=== PATIENT | female | born 1995 | race African-American/Black ===

== ENCOUNTER 2016-10-25 13:49 | Emergency (ER) | payer OTHER, BC ==
[~2016-10-25] VITALS: Ht 165.1 cm; Wt 66.0 kg
[2016-10-25 14:02] VITALS: TEMP 36.8; Ht 165.1 cm; Wt 66.0 kg
[2016-10-25] MEDS ORDERED: DiphenhydrAMINE HCL 50 MG/ML VIAL IV STA (15:26)
[2016-10-25] MEDS ORDERED: FAMOTIDINE 20MG/102 ML D5W IV STA (15:26)
[2016-10-25] MEDS ORDERED: DEXAMETHASONE SOD INJ 4 MG/ML VIAL IV STA (15:26)
[2016-10-25 15:45] LABS: BASO % 0.1 %; BASO ABS # 0.01 K/uL (0-0.2); COMPLETE YES; HEMATOCRIT 38.1 % (37-47); IG% 0.3 %; LYMPH % 20.1 %; LYMPH ABS # 1.46 K/uL (1.2-3.4); MEAN CELL VOLUME 92.7 fL (80-100); MEAN CORPUSCULAR HEMOGLOBIN 31.6 pg (25-34); MEAN CORPUSCULAR HGB CONC 34.1 g/dl (32-36); MEAN PLATELET VOLUME 8.7 fL (7.4-10.4); MONO % 5.8 %; NEUT % 72.7 %; PLATELET COUNT 265 K/uL (130-400); RED BLOOD COUNT 4.11 M/uL (4.2-5.4); WHITE BLOOD COUNT 7.28 K/uL (4.8-10.8)
[2016-10-25] MEDS ORDERED: HYDR50CA2 PO (15:45)
--- NOTE | 2016-10-25 16:20 | EMERGENCY ROOM VISIT NOTE ---
ED Visit Note First contact with patient: 15:18 I have seen and examined this patient with Tianna Castaneda and generally agree with the treatment plan as discussed. Current/Historical Medications Scheduled PRN Hydroxyzine Pamoate (Vistaril), 50 MG PO Q8 PRN for Itching Allergies Coded Allergies: Latex (Verified Allergy, Mild, RASH, 10/25/16) Uncoded Allergies: SULFATES (Allergy, Severe, ANAPHYLAXIS, 10/25/16) Vital Signs Date Time Temp Pulse Resp B/P Pulse Ox O2 Delivery O2 Flow Rate FiO2 10/25/16 15:32 83 16 116/77 100 10/25/16 14:06 99 Room Air 10/25/16 14:02 36.8 99 22 136/76 99 Room Air Laboratory Results 10/25/16 15:30 Red Blood Count 4.11, Mean Corpuscular Volume 92.7, Mean Corpuscular Hemoglobin 31.6, Mean Corpuscular Hemoglobin Concent 34.1, Mean Platelet Volume 8.7, Neutrophils (%) (Auto) 72.7, Lymphocytes (%) (Auto) 20.1, Monocytes (%) (Auto) 5.8, Eosinophils (%) (Auto) 1.0, Basophils (%) (Auto) 0.1, Neutrophils # (Auto) 5.30, Lymphocytes # (Auto) 1.46, Monocytes # (Auto) 0.42, Eosinophils # (Auto) 0.07, Basophils # (Auto) 0.01 Test 10/25/16 15:30 White Blood Count 7.28 K/uL (4.8-10.8) Red Blood Count 4.11 M/uL (4.2-5.4) Hemoglobin 13.0 g/dL (12.0-16.0) Hematocrit 38.1 % (37-47) Mean Corpuscular Volume 92.7 fL (80-100) Mean Corpuscular Hemoglobin 31.6 pg (25-34) Mean Corpuscular Hemoglobin Concent 34.1 g/dl (32-36) Platelet Count 265 K/uL (130-400) Mean Platelet Volume 8.7 fL (7.4-10.4) Neutrophils (%) (Auto) 72.7 % Lymphocytes (%) (Auto) 20.1 % Monocytes (%) (Auto) 5.8 % Eosinophils (%) (Auto) 1.0 % Basophils (%) (Auto) 0.1 % Neutrophils # (Auto) 5.30 K/uL (1.4-6.5) Lymphocytes # (Auto) 1.46 K/uL (1.2-3.4) Monocytes # (Auto) 0.42 K/uL (0.11-0.59) Eosinophils # (Auto) 0.07 K/uL (0-0.5) Basophils # (Auto) 0.01 K/uL (0-0.2) RDW Standard Deviation 41.1 fL (36.4-46.3) RDW Coefficient of Variation 12.1 % (11.5-14.5) Immature Granulocyte % (Auto) 0.3 % Immature Granulocyte # (Auto) 0.02 K/uL (0.00-0.02) Medications Administered Medications (Trade) Dose Ordered Sig/Joe Route Start Time Stop Time Status Last Admin Dose Admin Famotidine (Pepcid 20mg/100 ml) 20 mg ONE STAT IV 10/25/16 15:26 10/25/16 15:28 DC 10/25/16 15:39 20 MG Dexamethasone Sodium Phosphate (Decadron Inj) 10 mg NOW STAT IV 10/25/16 15:26 10/25/16 15:28 DC 10/25/16 15:37 10 MG Diphenhydramine HCl (Benadryl Inj) 25 mg NOW STAT IV 10/25/16 15:26 10/25/16 15:28 DC 10/25/16 15:34 25 MG Departure Information Referrals No Doctor, Assigned (PCP) Patient Instructions [facility]
[2016-10-25 16:21] LABS: BUN/CREATININE RATIO 15.8 (10-20); CALCIUM 9.1 mg/dl (8.5-10.1); CREATININE 0.62 mg/dl (0.60-1.20); POTASSIUM 3.9 mmol/L (3.5-5.1)
[2016-10-25] MEDS ORDERED: METH4PAK PO (16:50)
--- NOTE | 2016-10-25 16:52 | EMERGENCY ROOM VISIT NOTE ---
History First contact with patient: 15:18 Chief Complaint: ALLERGIC REACTION Stated Complaint: ALLERGIC REACTION Nursing Triage Summary: Pt reports allergic reaction, "It may be Siracha". facial swelling, throat tightening, lips swollen, chest tightness. Started 2 days ago, but worsening. Took Benadryl 2 days ago History of Present Illness The patient is a 21 year old female who presents to the Emergency Room with complaints of allergic reaction. The patient states yesterday morning after she ate eggs and Siracha she started with facial swelling and lip swelling. She also feels like her throat and chest is tight. The patient states that she then got better and then this morning she had eggs again and started with the same symptoms. She currently is complaining of mild facial swelling and feeling like her throat and chest are tight. The patient denies any rashes. The patient states that she has eaten eggs in the past without any problems. The patient is visiting a friend here but resides in [place]. Review of Systems 10 system review was performed and was negative unless stated otherwise history of present illness. Past Medical/Surgical History G6PD, JRA, fibromyalgia Social History Smoking Status: Current Every Day Smoker Alcohol Use: occasionally Drug Use: none Marital Status: single Housing Status: lives with family Occupation Status: unemployed Current/Historical Medications Scheduled Methylprednisolone (Medrol Dosepak), 1 PKT PO UD Scheduled PRN Hydroxyzine Pamoate (Vistaril), 50 MG PO Q8 PRN for Itching Allergies Coded Allergies: Latex (Verified Allergy, Mild, RASH, 10/25/16) Uncoded Allergies: SULFATES (Allergy, Severe, ANAPHYLAXIS, 10/25/16) Physical Exam Vital Signs Date Time Temp Pulse Resp B/P Pulse Ox O2 Delivery O2 Flow Rate FiO2 10/25/16 15:32 83 16 116/77 100 10/25/16 14:06 99 Room Air 10/25/16 14:02 36.8 99 22 136/76 99 Room Air Physical Exam PHYSICAL EXAM: Vital Signs were reviewed: Temperature 36.8, blood pressure 136/ 76, pulse 99, respiratory rate 22 Reviewed Nurse's notes and agree. Oxygen saturation is 99 % on room air which is normal . GENERAL: 21-year-old female appears in no acute distress. She does not appear in any respiratory distress. MENTAL STATUS: Alert, oriented, coherent. EARS: Canals clear. TMs good light reflex, no erythema or fluid level noted. NOSE: Nasal mucosa with moderate erythema engorgement. PHARYNX no erythema, no edema noted. No exudate noted. Airway is adequate. NECK: Supple, non-tender. No lymphadenopathy noted. LUNGS: Clear to auscultation without wheezes rales or rhonchi. CARDIAC: Regular rate and rhythm without murmur. SKIN: No rashes noted. Medical Decision & Procedures Laboratory Results 10/25/16 15:30 Red Blood Count 4.11, Mean Corpuscular Volume 92.7, Mean Corpuscular Hemoglobin 31.6, Mean Corpuscular Hemoglobin Concent 34.1, Mean Platelet Volume 8.7, Neutrophils (%) (Auto) 72.7, Lymphocytes (%) (Auto) 20.1, Monocytes (%) (Auto) 5.8, Eosinophils (%) (Auto) 1.0, Basophils (%) (Auto) 0.1, Neutrophils # (Auto) 5.30, Lymphocytes # (Auto) 1.46, Monocytes # (Auto) 0.42, Eosinophils # (Auto) 0.07, Basophils # (Auto) 0.01 10/25/16 15:30 Test 10/25/16 15:30 White Blood Count 7.28 K/uL (4.8-10.8) Red Blood Count 4.11 M/uL (4.2-5.4) Hemoglobin 13.0 g/dL (12.0-16.0) Hematocrit 38.1 % (37-47) Mean Corpuscular Volume 92.7 fL (80-100) Mean Corpuscular Hemoglobin 31.6 pg (25-34) Mean Corpuscular Hemoglobin Concent 34.1 g/dl (32-36) Platelet Count 265 K/uL (130-400) Mean Platelet Volume 8.7 fL (7.4-10.4) Neutrophils (%) (Auto) 72.7 % Lymphocytes (%) (Auto) 20.1 % Monocytes (%) (Auto) 5.8 % Eosinophils (%) (Auto) 1.0 % Basophils (%) (Auto) 0.1 % Neutrophils # (Auto) 5.30 K/uL (1.4-6.5) Lymphocytes # (Auto) 1.46 K/uL (1.2-3.4) Monocytes # (Auto) 0.42 K/uL (0.11-0.59) Eosinophils # (Auto) 0.07 K/uL (0-0.5) Basophils # (Auto) 0.01 K/uL (0-0.2) RDW Standard Deviation 41.1 fL (36.4-46.3) RDW Coefficient of Variation 12.1 % (11.5-14.5) Immature Granulocyte % (Auto) 0.3 % Immature Granulocyte # (Auto) 0.02 K/uL (0.00-0.02) Anion Gap 5.0 mmol/L (3-11) Est Creatinine Clear Calc Drug Dose 127.0 ml/min Estimated GFR () 147.3 Estimated GFR (Non- 127.1 BUN/Creatinine Ratio 15.8 (10-20) Calcium Level 9.1 mg/dl (8.5-10.1) Medications Administered Medications (Trade) Dose Ordered Sig/Joe Route Start Time Stop Time Status Last Admin Dose Admin Famotidine (Pepcid 20mg/100 ml) 20 mg ONE STAT IV 10/25/16 15:26 10/25/16 15:28 DC 10/25/16 15:39 20 MG Dexamethasone Sodium Phosphate (Decadron Inj) 10 mg NOW STAT IV 10/25/16 15:26 10/25/16 15:28 DC 10/25/16 15:37 10 MG Diphenhydramine HCl (Benadryl Inj) 25 mg NOW STAT IV 10/25/16 15:26 10/25/16 15:28 DC 10/25/16 15:34 25 MG ED Course The patient was evaluated. IV access was obtained. The patient was given Benadryl 25 mg IV, Decadron 10 mg IV and Pepcid 20 mg IV. CBC and differential renal profile was ordered. Labs were reviewed and were unremarkable. The patient was independently evaluated by Dr. Dietrich who agrees with treatment plan. The patient was discharged home in stable condition. Medical Decision The patient did not have any physical findings on exam therefore my diagnosis is based on the patient's history. Differential diagnosis would include panic attack, allergic reaction, Impression Primary Impression: Allergic reaction Departure Information Dispostion Home / Self-Care Condition GOOD Prescriptions Methylprednisolone (MEDROL DOSEPAK) 4 Mg Cholo 1 PKT PO UD for 6 Days, #1 PKT Prov: Tianna Castaneda PA-C 10/25/16 Referrals No Doctor, Assigned (PCP) Forms HOME CARE DOCUMENTATION FORM, IMPORTANT VISIT INFORMATION Patient Instructions My [facility] Additional Instructions Avoid eggs if possible. Take Decadron as prescribed. Also if he experienced any facial or lip swelling take Benadryl 25-50 mg every 6 hours. If you experience any throat or chest tightness go to the emergency room immediately. Follow-up with your PCP when you return home.
[2016-10-25 17:00] VITALS: BP 108/67; PULSE 72; O2SAT 100
== END 2016-10-25 17:00 | disposition home or self-care (01) ==
LOC: C.EDB 13:50 → C.EDC 17:00
DX: T78.40XA Allergy, unspecified, initial encounter (principal); X58.XXXA Exposure to other specified factors, initial encounter; F17.200 Nicotine dependence, unspecified, uncomplicated; Z91.040 Latex allergy status; Z88.5 Allergy status to narcotic agent

== ENCOUNTER 2016-11-29 12:19 | Emergency (ER) | payer OTHER, BC ==
[~2016-11-29] VITALS: Ht 162.6 cm; Wt 68.5 kg
[~2016-11-29 12:19] MED LIST: HYDR50CA2 PO
[2016-11-29 12:24] VITALS: TEMP 36.9; Ht 162.6 cm; Wt 68.5 kg
[2016-11-29] MEDS ORDERED: ALBUTEROL HFA 8 GM INHALER INH STA (12:35)
[2016-11-29] MEDS ORDERED: SODIUM CHLORIDE 0.9% 1000ML 1,000 ML IV STA (12:35)
[2016-11-29] MEDS ORDERED: DiphenhydrAMINE HCL 50 MG/ML VIAL IV STA (12:35)
[2016-11-29] MEDS ORDERED: METHYLPREDNISOLONE 125 MG VIAL IV STA (12:35)
[2016-11-29] MEDS ORDERED: RANITIDINE HCL 50 MG/100 ML D5W IV STA (12:35)
[2016-11-29] MEDS ORDERED: ALBUT/IPRATROP 3MG/0.5MG NEB 3 ML VIAL INH STA (12:35)
[2016-11-29] MEDS ORDERED: PRED20TA2 PO ×2 (12:51→14:22)
[2016-11-29 13:05] VITALS: PULSE 85; O2SAT 100
[2016-11-29] MEDS ORDERED: KETOROLAC TROMETHAMINE 30 MG/ML VIAL IV STA (14:16)
[2016-11-29] MEDS ORDERED: HYDROCODONE/HOMATROPINE SYRUP 5MG/1.5MG 5ML UDP PO STA (14:16)
[2016-11-29] MEDS ORDERED: HYDR5SYP11 PO (14:22)
--- NOTE | 2016-11-29 14:27 | EMERGENCY ROOM VISIT NOTE ---
History Report prepared by Azalea: Fam Wright Under the Supervision of: Dr. Panfilo Dietrich M.D. First contact with patient: 12:29 Chief Complaint: ALLERGIC REACTION Stated Complaint: VOMITING, HARD TO BREATHE, PUFFY FACE, TIGHT CHEST History of Present Illness The patient is a 21 year old female who presents to the Emergency Room with complaints of a possible worsening allergic reaction beginning this morning. Her symptoms include chest tightness, facial swelling, lymphadenopathy, and shortness of breath. She states that she had a similar reaction occur last week for which she was seen at [facility]. The patient states that she was told by [facility] that she should present to the ED if similar symptoms return. She notes that she has a history of g6pdD. She has a history of asthma. The patient notes that she is scheduled for surgery on her vocal chord in the coming months. She states that she has been taking Prednisone and Benadryl for her previous reaction, but did not take any today. She denies any fevers. Source of History: patient Onset: this morning Quality: other (allergic reaction) Timing: worsening Associated Symptoms: + SOB, + chest pain, + lymphadenopathy, No fevers Note: The patient complains of facial swelling. Review of Systems See HPI for pertinent positives & negatives. A total of 10 systems reviewed and were otherwise negative. Past Medical & Surgical Medical Problems: (1) Asthma Family History No pertinent family history stated. Social History Smoking Status: Current Every Day Smoker Alcohol Use: occasionally Drug Use: none Marital Status: single Housing Status: lives with family Occupation Status: unemployed Current/Historical Medications Scheduled Prednisone (Prednisone Tab), 20 MG PO BID Prednisone (Prednisone Tab), 0 PO DAILY Scheduled PRN Hydrocodone W/ Homatropine (Hycodan 5/1.5MG 5 Ml), 5 ML PO HS PRN for Pain Allergies Coded Allergies: Latex (Verified Allergy, Mild, RASH, 10/25/16) Uncoded Allergies: SULFATES (Allergy, Severe, ANAPHYLAXIS, 10/25/16) Physical Exam Vital Signs Date Time Temp Pulse Resp B/P Pulse Ox O2 Delivery O2 Flow Rate FiO2 11/29/16 14:36 76 16 136/91 100 Room Air 11/29/16 14:12 100 20 137/89 97 Room Air 11/29/16 13:13 84 11/29/16 13:12 96 Room Air 11/29/16 13:11 85 20 140/100 100 Nebulizer 8.0 11/29/16 13:05 85 16 100 Room Air 11/29/16 12:24 36.9 61 20 141/89 99 Room Air Physical Exam GENERAL: Patient is a healthy-appearing well-nourished HEAD: Normocephalic atraumatic EYES: Ocular movements intact pupils equal and react to light OROPHARYNX mucous membranes are moist no exudates present no erythema or edema present NECK: Supple no nuchal rigidity CHEST: Good equal expansion LUNGS: Bilateral wheezing. CARDIAC: Normal S1 and S2 ABDOMEN: Soft nontender no guarding BACK: No CVA tenderness EXTREMITIES: No pain upon palpation normal muscle strength in all groups no clubbing cyanosis or edema NEURO: Patient is following commands is answering questions appropriately. Alert and oriented x3 Cranial Nerves 2-12 grossly intact Medical Decision & Procedures Medications Administered Medications (Trade) Dose Ordered Sig/Joe Route Start Time Stop Time Status Last Admin Dose Admin Albuterol (Ventolin Hfa Inhaler) 2 puffs NOW STAT INH 11/29/16 12:35 11/29/16 12:38 DC 11/29/16 12:35 2 PUFFS Albuterol/ Ipratropium 12 ml 12 ml ONE STAT INH 11/29/16 12:35 11/29/16 12:38 DC 11/29/16 12:35 12 ML Sodium Chloride (Nss 1000ml) 1,000 ml @ 999 mls/hr Q1H1M STAT IV 11/29/16 12:35 11/29/16 13:35 DC 11/29/16 13:02 999 MLS/HR Methylprednisolone Sodium Succinate (Solu-Medrol IV) 125 mg NOW STAT IV 11/29/16 12:35 11/29/16 12:38 DC 11/29/16 13:04 125 MG Diphenhydramine HCl (Benadryl Inj) 50 mg NOW STAT IV 11/29/16 12:35 11/29/16 12:38 DC 11/29/16 13:03 50 MG Ranitidine HCl (zANTac IV) 50 mg NOW STAT IV 11/29/16 12:35 11/29/16 12:38 DC 11/29/16 13:16 50 MG Ketorolac Tromethamine (Toradol Inj) 30 mg NOW STAT IV 5/8/17 14:16 11/29/16 14:17 DC 11/29/16 14:28 30 MG Hydrocodone Bit/ Homatropine Methylb (Hycodan Syrup) 5 ml NOW STAT PO 11/29/16 14:16 11/29/16 14:17 DC 11/29/16 14:27 5 ML ED Course 1231: Past medical records reviewed. The patient was evaluated in room B10. A complete history and physical examination was performed. 1235: Ordered Zantac 50 mg IV, Benadryl Inj 50 mg IV, Solu-Medrol 125 mg IV, Sodium Chloride 1000 ml @ 999 mls/hr, DuoNeb 12 mL INH, Ventolin Hfa Inhaler 2 puffs INH. 1416: Ordered Hycodan Syrup 5 mL PO, Toradol Inj 30 mg IV. 1420: Upon reexamination the patient is resting comfortably. I discussed results and treatment plan with the patient. She verbalizes agreement and understanding. The patient is ready for discharge. Medical Decision Differential diagnosis: Etiologies such as allergic reaction, anaphylaxis, urticaria, Joseph-Parag syndrome, toxic epidermal necrolysis, erythema multiforme, cellulitis, as well as others were entertained. This is a 21-year-old female who presents emergency department complaining of allergic reaction. The patient's face swelled up this morning. She is currently on prednisone however her last dose of prednisone was last evening. For this reason the patient was started on an IV given Solu-Medrol Zantac and Benadryl. She was also given an hour-long breathing treatment. Repeat examination revealed much improvement the patient's symptoms. I'm going to increase the patient's prednisone taper and also recommended that she follow up with a primary care physician. Patient was in agreement with the treatment plan. Impression Primary Impression: Allergic reaction Scribe Attestation The scribe's documentation has been prepared under my direction and personally reviewed by me in its entirety. I confirm that the note above accurately reflects all work, treatment, procedures, and medical decision making performed by me. Departure Information Dispostion Home / Self-Care Prescriptions Hydrocodone W/ Homatropine (HYCODAN 5/1.5MG 5 ML) 1 Syp Syp 5 ML PO HS Y for Pain, #120 ML Prov: Panfilo Dietrich MD 11/29/16 Prednisone (Prednisone Tab) 20 Mg Tab 0 PO DAILY, #7 TAB 2 TABS DAILY FOR 2 DAYS, THEN 1 TAB DAILY FOR 2 DAYS, THEN 1/2 TAB DAILY FOR 2 DAYS. Prov: Panfilo Dietrich MD 11/29/16 Referrals No Doctor, Assigned (PCP) Forms HOME CARE DOCUMENTATION FORM, IMPORTANT VISIT INFORMATION Patient Instructions ED Allergic Reaction General Other, My [facility] Additional Instructions Call [phone] to schedule an appointment with a PCP You received narcotic or benzodiazepene medication while in the emergency room today. Do not drive, operate heavy machinery, or drink alcohol under the influence of this medication. Take 600 mg Ibuprofen every 6 hours Take Hycodan for breakthrough pain You have been examined and treated today on an emergency basis only. This is not a substitute for, or an effort to provide, complete comprehensive medical care. It is impossible to recognize and treat all injuries or illnesses in a single emergency department visit. It is therefore important that you follow up closely with your PCP. Call as soon as possible for an appointment. Thank you for your time and consideration. I look forward to speaking with you again soon. Please don't hesitate to call us if you have any questions. Problem Qualifiers Primary Impression: Allergic reaction Encounter type: initial encounter Qualified Codes: T78.40XA - Allergy, unspecified, initial encounter
[2016-11-29 14:36] VITALS: BP 136/91; PULSE 76; O2SAT 100
== END 2016-11-29 14:39 | disposition home or self-care (01) ==
LOC: C.EDB 12:21
DX: T78.40XA Allergy, unspecified, initial encounter (principal); X58.XXXA Exposure to other specified factors, initial encounter; J45.909 Unspecified asthma, uncomplicated; F17.200 Nicotine dependence, unspecified, uncomplicated; Z91.040 Latex allergy status

== ENCOUNTER 2017-01-14 09:10 | Emergency (ER) | payer OTHER, BC ==
[~2017-01-14] VITALS: Ht 165.1 cm; Wt 70.7 kg
[~2017-01-14 09:10] MED LIST changes: -HYDR50CA2 PO; +PRED20TA2 PO
[2017-01-14 09:14] VITALS: TEMP 36.9; Ht 165.1 cm; Wt 70.7 kg
[2017-01-14] MEDS ORDERED: HYDR50CA2 PO (09:43)
[2017-01-14] MEDS ORDERED: ALBUT/IPRATROP 3MG/0.5MG NEB 3 ML VIAL INH STA (09:59)
[2017-01-14] MEDS ORDERED: FAMOTIDINE 20 MG TAB PO ONE (10:00)
[2017-01-14] MEDS ORDERED: EPP3/2 IM (11:14)
[2017-01-14] MEDS ORDERED: PRED20TA PO (11:14)
[2017-01-14] MEDS ORDERED: PRVHFAIN INH (11:47)
[2017-01-14 11:50] VITALS: BP 116/78; PULSE 102; O2SAT 100
--- NOTE | 2017-01-14 17:00 | EMERGENCY ROOM VISIT NOTE ---
History Report prepared by Azalea: Tim Sotomayor Under the Supervision of: Dr. Jarrett Ryan M.D. First contact with patient: 09:48 Chief Complaint: ALLERGIC REACTION Stated Complaint: ALLERGIC REACTION,SOB Nursing Triage Summary: having allergic reaction unsure of what the reaction is to. I had allergy issues a couple days ago. I have been here in the past for reactions. I didnt take any benedryl today History of Present Illness The patient is a 21 year old female who presents to the Emergency Room with complaints of an allergic reaction that began this morning, about 1 hour ago. She does not know everything that she is allergic to because she cannot see her Appliance Counselor until January. Two days ago, she noticed a reaction when she used a new cleaning product while she was cleaning out her refrigerator. Her hands began to burn, so she stopped using it, cleaned her hands off, and took a Benadryl. She woke up yesterday with some mild facial swelling. This morning she woke with the mild swelling again, but worsened after she ate breakfast. She ate a breakfast sandwich that consisted of eggs, marie, chicken, and gouda. This sandwich was from [employer], and has never caused this reaction before. Along with her facial swelling today, she presents with a sore throat, throat tightness, chest tightness, and trouble taking a full breath. She denies any recent fevers, cough, abdominal pain, back pain, or rash. She did not take any medications this morning. She notes that she did buy a new soap recently. She denies any chance that she is . She has a past medical history of Asthma , Fibromyalgia, and Anxiety. She currently takes Vistaril for her Anxiety. She notes that in her past visits to the ER for allergic reactions, she was given Prednisone. Source of History: patient Onset: 1 hour ago Position: lip Symptom Intensity: mild Quality: other (Swelling) Timing: constant Associated Symptoms: + sorethroat (with tightness), + chest pain (Tightness) , + SOB, No fevers, No cough, No abdominal pain, No back pain, No rash Review of Systems See HPI for pertinent positives & negatives. A total of 10 systems reviewed and were otherwise negative. Past Medical & Surgical Medical Problems: (1) Asthma Family History Patient reports no known family medical history. Social History Smoking Status: Former Smoker Alcohol Use: occasionally Drug Use: none Marital Status: single Housing Status: lives with family Occupation Status: employed Current/Historical Medications Scheduled Albuterol (Ventolin Hfa), 2 PUFFS INH Q4H Epinephrine (Epipen), 0.3 MG IM UD Prednisone (Prednisone Tab), 20 MG PO BID Prednisone (Prednisone), 3 TAB PO DAILY Scheduled PRN Hydroxyzine Pamoate (Vistaril), 50 MG PO QID PRN for Anxiety Allergies Coded Allergies: Latex (Verified Allergy, Mild, RASH, 10/25/16) Uncoded Allergies: SULFATES (Allergy, Severe, ANAPHYLAXIS, 10/25/16) Physical Exam Vital Signs Date Time Temp Pulse Resp B/P (MAP) Pulse Ox O2 Delivery O2 Flow Rate FiO2 01/14/17 11:50 102 20 116/78 100 01/14/17 09:21 99 Room Air 01/14/17 09:14 36.9 122 18 116/82 97 Room Air Physical Exam Constitutional: Vital signs reviewed. Eyes: Pupils are equal round reactive to light. Conjunctiva are noninjected. ENT: Mild erythema to the posterior oropharynx without exudate. No uvular edema or swelling to the tongue. Minimal facial swelling around the lips. Mucous membranes are moist. Neck supple without meningeal signs. Respiratory: Clear to auscultation bilaterally. Breath sounds are equal bilaterally. No wheezing or stridor. Cardiovascular: Regular rate and rhythm. No rubs or gallops. GI: Soft, nondistended and nontender. Bowel sounds are present. Musculoskeletal: No peripheral edema. No lower extremity tenderness. Integumentary: No cyanosis. No urticaria. Neurological: The patient is awake and alert. No focal deficits. Psychiatric: Normal affect. Medical Decision & Procedures Medications Administered Medications (Trade) Dose Ordered Sig/Joe Route Start Time Stop Time Status Last Admin Dose Admin Diphenhydramine HCl (Benadryl Cap) 50 mg NOW ONCE PO 01/14/17 10:00 01/14/17 10:01 DC 01/14/17 10:14 50 MG Prednisone (PredniSONE TAB) 60 mg NOW STAT PO 01/14/17 09:59 01/14/17 10:01 DC 01/14/17 10:14 60 MG Famotidine (Pepcid Tab) 20 mg NOW ONCE PO 01/14/17 10:00 01/14/17 10:01 DC 01/14/17 10:14 20 MG Albuterol/ Ipratropium (Duoneb) 3 ml NOW STAT INH 01/14/17 09:59 01/14/17 10:01 DC 01/14/17 10:13 3 ML ED Course 0948: The patient was evaluated in room B4. A complete history and physical exam was performed. 0959: Ordered DuoNeb 3 ml INH, Prednisone 60 mg PO 1000: Ordered Pepcid Tab 20 mg PO, Benadryl Cap 50 mg PO 1112: I reassessed the patient at this time. There is no significant angioedema. There is no wheezing on reexamination. She will follow up with immunology and allergy. 1120: Upon reevaluation, the patient appeared to have improvement of her symptoms. I discussed shannen's findings with her. She verbalized agreement of the treatment plan. She was discharged home. Medical Decision This is a 21-year-old female presents with sore throat and swelling to her face. Differential diagnosis includes allergic reaction, idiopathic angioedema , hereditary angioedema, strep pharyngitis, asthma exacerbation. I did perform a limited focused review of portions of the patient's old chart on the electronic medical record. The patient was here in the ER in October and November for an allergic reaction. Blood Pressure Screening: Patient was found to have normal blood pressure on screening and does not require follow-up. Medication Reconciliation: I attest that I have personally reviewed the patient' s current medication list. I did evaluate the patient as noted above. The patient is presenting with intermittent swelling to her lips for the past 2 days. She has had similar reactions over the past 2 months. She is not sure what she is allergic to it and does not have an allergy appointment for some time. At this time it is unclear what is causing her angioedema. I did guide and treat her with a DuoNeb. She was also given prednisone, Benadryl and Pepcid. I did do a rapid strep test which was negative. A throat culture is pending. I did reassess the patient. She does state she is feeling better. Her swelling has improved. She has no wheezing on exam. I did recommend she follow up with a local pipe out worker. She was given a prescription for prednisone. She will continue to use antihistamines. She was also given a prescription for EpiPen and an albuterol inhaler. She was discharged in good condition. Impression Primary Impression: Angioedema Additional Impression: Sore throat Scribe Attestation The scribe's documentation has been prepared under my direct and personally reviewed by me in its entirety. I confirm that the note above accurately reflects all work, treatment, procedures, and medical decision making performed by me. Departure Information Dispostion Home / Self-Care Prescriptions Albuterol (Ventolin Hfa) 60 Puffs/5400 Mcg Aers 2 PUFFS INH Q4H, #1 INHALER Prov: Jarrett Ryan M.D. 01/14/17 Epinephrine (EPIPEN) 0.3 Mg/0.3 Ml Inj 0.3 MG IM UD, #1 BOX Prov: Jarrett Ryan M.D. 01/14/17 Prednisone (Prednisone) 20 Mg Tab 3 TAB PO DAILY, #12 TAB FOR 4 DAYS Prov: Jarrett Ryan M.D. 01/14/17 Referrals Flip Christine M.D. Solic, John, M.D. Forms HOME CARE DOCUMENTATION FORM, IMPORTANT VISIT INFORMATION, Work Instructions Patient Instructions ED Angioedema, My [facility] Additional Instructions You have been examined and treated today on an emergency basis only. This is not a substitute for, or an effort to provide, complete comprehensive medical care. It is impossible to recognize and treat all injuries or illnesses in a single emergency department visit. It is therefore important that you follow up closely with an pipe out worker as well as your regular physician or [facility] services. Call as soon as possible for an appointment. Return for worsening symptoms or if you develop fever, feeling like you're going to pass out or cannot breathe, or any other concerning symptoms. Problem Qualifiers Primary Impression: Angioedema Encounter type: initial encounter Qualified Codes: T78.3XXA - Angioneurotic edema, initial encounter
== END 2017-01-14 11:52 | disposition home or self-care (01) ==
LOC: C.EDB 09:11
DX: T78.3XXA Angioneurotic edema, initial encounter (principal); X58.XXXA Exposure to other specified factors, initial encounter; J45.909 Unspecified asthma, uncomplicated; M79.7 Fibromyalgia; F41.9 Anxiety disorder, unspecified; Z79.899 Other long term (current) drug therapy; Z87.891 Personal history of nicotine dependence

== ENCOUNTER 2017-05-18 11:01 | Emergency (ER) | payer OTHER, BC ==
[~2017-05-18] VITALS: Ht 165.1 cm; Wt 77.1 kg
[~2017-05-18 11:01] MED LIST changes: +EPP3/2 IM; +HYDR50CA2 PO; +PRED20TA PO; +PRVHFAIN INH
[2017-05-18 11:18] VITALS: TEMP 36.7; Ht 165.1 cm; Wt 77.1 kg
[2017-05-18] MEDS ORDERED: EpINEphrine INJ 1MG/ML AMP 1 MG/ML AMP IM STA (11:59)
[2017-05-18] MEDS ORDERED: ONDANSETRON INJ 2 MG/ML 2 ML VIAL IV STA (11:59)
[2017-05-18] MEDS ORDERED: RANITIDINE HCL 50 MG/100 ML D5W IV STA (11:59)
[2017-05-18] MEDS ORDERED: METHYLPREDNISOLONE 125 MG VIAL IV STA (11:59)
[2017-05-18] MEDS ORDERED: DiphenhydrAMINE HCL 50 MG/ML VIAL IV STA (11:59)
[2017-05-18] MEDS ORDERED: LACTATED RINGER'S 1000ML 1,000 ML IV ONE (12:00)
[2017-05-18] MEDS ORDERED: PRED20TA2 PO (13:31)
[2017-05-18] MEDS ORDERED: EPP3/2 IM (13:31)
[2017-05-18 13:46] VITALS: BP 125/66; PULSE 88; O2SAT 98
--- NOTE | 2017-05-18 20:07 | EMERGENCY ROOM VISIT NOTE ---
ED Visit Note First contact with patient: 11:46 Chief Complaint: I think I'm having allergic reaction. History of Present Illness: Ms. Sena is a 22-year-old female who is brought into the ED via ambulance complaining of a possible allergic reaction. Historically patient reports she has had severe allergic reactions to cats. Patient reports approximately one hour ago she was at work sorting used close and believes she was exposed to cat hair. She reports her symptoms started when some hair touched her face and she started having sensations of lip and tongue swelling. She tried to get to a local drug store to buy Benadryl but was unsuccessful because by the time she got out to her car she was feeling short of breath. Bystander stopped to assist her and activated 911. Patient was transported to the hospital and during transport she received a breathing treatment. On arrival she reports she was no longer feeling short of breath. Currently patient is complaining of lip, tongue and throat swelling. She reports these sensations were slightly better since her breathing treatment but has not resolved like her shortness of breath. She has not identified any aggravating factors related to these symptoms. Associated with the symptoms she reports she has a strange heaviness sensation of her arms and is experiencing some mild chest tightness. She also reports she has been nauseated and had 2 episodes of vomiting prior to her breathing treatment. She denies headache, dizziness, lightheadedness, cough, wheezing, palpitations, orthopnea, dependent edema, previous clots, claudication, cramping, recent surgery/inactivity/extended travel, abdominal pain, back pain, urinary symptoms , skin eruptions, skin color changes, joint pain/swelling. Review of Systems: As noted above in history of present illness. All body systems were reviewed and found to be negative as noted above. Past Medical History: As previously noted, asthma, arthritis, fibromyalgia, food and seasonal allergies, G6PD deficiency. Current Medications: Patient denies. Allergies to Medications: Latex, sulfates. Social History: Patient is currently employed; she feels safe in her home environment; she denies tobacco use and admits to alcohol use. Physical Examination: Vital Signs: Date Time Temp Pulse Resp B/P (MAP) Pulse Ox O2 Delivery O2 Flow Rate FiO2 05/18/17 13:46 88 20 125/66 98 05/18/17 13:01 94 22 121/59 96 Room Air 05/18/17 12:44 88 05/18/17 11:18 36.7 78 18 115/84 99 Room Air 05/18/17 11:10 100 Room Air GENERAL: 22-year-old female in mild distress due to symptoms, nontoxic-appearing , afebrile and hemodynamically stable. NEUROLOGICAL: Awake, alert and oriented to person, place and time. Answering questions appropriately and following commands. Normal gait. Good hand eye coordination. No focal motor sensory deficits. SKIN: Warm, dry and pink. No soft tissue eruptions or trauma noted. Negative dermatographia testing. HEENT: Atraumatic and normocephalic. PERRLA. Sclera white and conjunctiva pink. No drainage from naris. No lip swelling. Oral cavity moist and pink. Uvula is midline and no swelling or erythema was noted. No tongue swelling. Pharynx is nonerythematous or edematous. Airway is patent. Speech normal and clear. No lymphadenopathy. Trachea midline. No jugular venous distention. No auditory or auscultatory stridor. BACK: No tenderness over the bony spine. No CVA tenderness. THORAX: Lungs sounds are clear to auscultation and equal bilaterally with symmetrical chest wall. No wheezing, rales or rhonchi. No crepitus, tenderness , subcutaneous air or deformities noted. HEART: Regular rate and rhythm. No gallops, rubs or murmurs are appreciated. ABDOMEN: Flat, soft and nontender. Positive bowel sounds in all quadrants. No guarding, rigidity or organomegaly. EXTREMITIES: Moves all extremities well on command and with purpose. All distal neurovascular statuses are intact and equal bilaterally. No calf tenderness or cords. ED Course: Patient is assessed as noted above. Patient's medication list was reviewed. Patient was hydrated with 1 L of lactated Ringer's and given 50 mg of Benadryl IV, 125 mg of Solu-Medrol IV, 50 mg of Zantac IV and 4 mg of Zofran IV. Additionally she received 0.3 mg of epinephrine IM. Patient was reevaluated multiple times during her stay in the emergency department. Patient's case was reviewed with Dr. Lackey; we agreed on diagnostic approach, treatment, disposition and plan. Patient was educated about today's findings and instructed on her treatment plan ; she verbalized understanding and agreement with this plan. Clinical Impression: Allergic reaction. Disposition: Patient discharged to home in stable condition accompanied by female friends; prior to departure she was reassessed and subjectively reported she was feeling much better. She did note she had a mild discomfort with swallowing but did not feel like the swelling sensation previously. LATE NOTE: Just prior to discharge patient reports she was out of her albuterol inhaler for her asthma and requested a prescription. A prescription was given. Plan: Patient was prescribed prednisone 60 mg once a day for 4 days. Patient was encouraged use [id number] Benadryl 25-50 mg every 6 hours and [id number] ranitidine 125 mg every 12 hours until resolution of symptoms. Patient was prescribed an EpiPen because she used her last on a previous episode. Patient is encouraged to follow-up with her PCP for recheck in 2-3 days. Patient was encouraged return ED for shortness of breath, sensation of tongue, throat or lip swelling or any new/concerning symptoms.
== END 2017-05-18 13:47 | disposition home or self-care (01) ==
LOC: EDBD 11:01 → C.EDB 11:02
DX: T78.40XA Allergy, unspecified, initial encounter (principal); X58.XXXA Exposure to other specified factors, initial encounter; Z91.040 Latex allergy status; Z88.8 Allergy status to other drugs, medicaments and biological substances

== ENCOUNTER 2017-06-03 14:09 | Emergency (ER) | payer OTHER, BC ==
[~2017-06-03] VITALS: Ht 165.1 cm; Wt 78.2 kg
[~2017-06-03 14:09] MED LIST changes: -HYDR50CA2 PO; -PRED20TA PO; -PRVHFAIN INH
[2017-06-03 14:13] VITALS: TEMP 36.9; Ht 165.1 cm; Wt 78.2 kg
[2017-06-03] MEDS ORDERED: RANITIDINE HCL 50 MG/100 ML D5W IV STA (14:23)
[2017-06-03] MEDS ORDERED: METHYLPREDNISOLONE 125 MG VIAL IV STA (14:23)
[2017-06-03] MEDS ORDERED: DiphenhydrAMINE HCL 50 MG/ML VIAL IV STA (14:23)
[2017-06-03 16:30] VITALS: BP 115/76; PULSE 88; O2SAT 98
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
== END 2017-06-03 16:30 | disposition home or self-care (01) ==
LOC: C.EDB 14:12
DX: T78.40XA Allergy, unspecified, initial encounter (principal); X58.XXXA Exposure to other specified factors, initial encounter; J45.909 Unspecified asthma, uncomplicated; Z87.891 Personal history of nicotine dependence

== ENCOUNTER → 2017-08-12 | Outpatient (CLI) | payer BC, OTHER ==
[~2017-08-12] MED LIST changes: -PRED20TA2 PO
--- NOTE | 2017-08-12 13:24 | DIAGNOSTIC IMAGING REPORT ---
RIGHT ANKLE 3 VIEWS CLINICAL HISTORY: Right ankle pain. Injury. FINDINGS: 3 views of the right ankle are obtained. No prior studies are available for comparison at the time of dictation. The skeletal structures are well mineralized. There is a tiny ossific density inferior to the medial malleolus. This may represent an age indeterminant avulsion injury or an enthesophyte. No additional findings are concerning for acute fracture. The ankle mortise is intact. There is a joint effusion, and soft tissue swelling is present around the ankle. IMPRESSION: 1. Soft tissue swelling and joint effusion. No definite acute fracture is identified. 2. A small ossific density is seen inferior to the medial malleolus. This may represent an age indeterminant avulsion injury versus an enthesophyte. Clinical correlation will be required. Electronically signed by: Yamil Mcnamara M.D. 08/12/2017 1:23 PM Dictated Date/Time: 08/12/2017 1:20 PM
== END | disposition home or self-care (01) ==
LOC: C.RDSM 13:00
PROVIDERS: ATTEND Family Medicine
DX: M25.571 Pain in right ankle and joints of right foot (principal)

== ENCOUNTER 2017-09-20 09:27 | Emergency (ER) | payer OTHER, BC ==
[~2017-09-20] VITALS: Ht 165.1 cm; Wt 77.7 kg
[2017-09-20 09:33] VITALS: TEMP 38.3; Ht 165.1 cm; Wt 77.7 kg
[2017-09-20 09:48] VITALS: O2SAT 96
[2017-09-20] MEDS ORDERED: SODIUM CHLORIDE 0.9% 1000ML 1,000 ML IV STA (10:13)
[2017-09-20] MEDS ORDERED: ACETAMINOPHEN 500 MG TAB PO STA (10:13)
--- NOTE | 2017-09-20 10:41 | EMERGENCY ROOM VISIT NOTE ---
History Report prepared by Edisibnancy: Kiana Bowser Under the Supervision of: Dr. Nicola Lackey D.O. First contact with patient: 10:04 Chief Complaint: ALLERGIC REACTION Stated Complaint: ALLERGIC REACTION, ANEMIC REACTION Nursing Triage Summary: Pt states hx of G6PD. Pt states, "I am having an allergic reaction and an anemic reaction. I'm not sure if the fever is from the reaction. I am having vaginal bleeding and it's not my period. I feel like I can't breathe. My whole body hurts and my chest hurts." Sx started yesterday. History of Present Illness The patient is a 22 year old female who presents to the Emergency Room with complaints of an episode of a allergic reaction beginning last night. The patient took a Benadryl last night which helped her symptoms. The patient has a history of of G6PD. She reports fever, chills, abdominal pain, cough, runny nose , chest congestion but denies any swelling in her legs. The patient states "I am having an allergic reaction and an anemic reaction". She reports she is having vaginal bleeding but it is not her menstrual period. The patient's last normal menstrual period was on 09/05. The patient is up to date on her immunizations. She denies any recent sick contact. Source of History: patient Onset: last night Position: other (generalized) Quality: other (allergic reaction) Timing: other Associated Symptoms: + fevers, + chills, + cough, + abdominal pain Review of Systems See HPI for pertinent positives & negatives. A total of 10 systems reviewed and were otherwise negative. Past Medical & Surgical Medical Problems: (1) Asthma (2) G6PD deficiency Family History Patient reports no known family medical history. Social History Smoking Status: Never Smoker Alcohol Use: occasionally Drug Use: none Marital Status: single Housing Status: lives with family Occupation Status: employed Current/Historical Medications Scheduled Albuterol Hfa (Ventolin Hfa), 1 PUFF INH Q4 Cefdinir (Omnicef), 300 MG PO Q12H Scheduled PRN Epinephrine (Epipen 2-Cholo), 0.3 MG IM DIRECTED PRN for ALLERGIC REACTION Allergies Coded Allergies: Latex (Verified Allergy, Mild, RASH, 06/03/17) Uncoded Allergies: SULFATES (Allergy, Severe, ANAPHYLAXIS, 10/25/16) Physical Exam Vital Signs Date Time Temp Pulse Resp B/P (MAP) Pulse Ox O2 Delivery O2 Flow Rate FiO2 09/20/17 12:23 109 21 119/59 98 Room Air 09/20/17 11:26 104 19 114/73 98 Room Air 09/20/17 10:49 111 20 126/78 99 Room Air 09/20/17 09:51 119 09/20/17 09:48 96 Room Air 09/20/17 09:35 100 Room Air 09/20/17 09:33 38.3 139 20 134/99 99 Room Air Physical Exam GENERAL: Patient is awake, alert, and in no acute distress. Patient is resting comfortably but mildly anxious appearing EYES: The conjunctivae are clear. The pupils are round and reactive. EARS, NOSE, MOUTH AND THROAT: The nose is without any evidence of any deformity. Mucous membranes are moist tongue is midline Clear rhinorrhea bilaterally. NECK: The neck is nontender and supple. RESPIRATORY: Normal respiratory effort is noted there is no evidence of wheezing rhonchi or rales CARDIOVASCULAR: Tachycardic rate but regular rhythm noted there no murmurs rubs or gallops normal S1 normal S2 GASTROINTESTINAL: The abdomen is soft. Bowel sounds are present in all quadrants. Abdomen is nontender MUSCULOSKELETAL/EXTREMITIES: There is no evidence of gross deformity full range of motion is noted in the hips and shoulders SKIN: There is no obvious evidence of any rash. There are no petechiae, pallor or cyanosis noted. NEUROLOGIC: Patient is awake alert and oriented x3 strength is symmetric patellar reflexes are 2+ bilaterally Medical Decision & Procedures ER Provider Diagnostic Interpretation: Radiology results as stated below per my review and radiologist interpretation: CHEST 2 VIEWS ROUTINE FINDINGS: Cardiomediastinal and hilar silhouettes are within normal limits. Linear subsegmental atelectasis of the lingula without pneumothorax, pleural effusion, focal airspace consolidation or overt pulmonary edema. Bones of the chest appear grossly intact. IMPRESSION: Linear subsegmental atelectasis of the lingula without acute process. The above report was generated using voice recognition software. It may contain grammatical, syntax or spelling errors. Electronically signed by: Gorge Evans M.D. Laboratory Results 09/20/17 10:35 Red Blood Count 4.16, Mean Corpuscular Volume 88.7, Mean Corpuscular Hemoglobin 30.5, Mean Corpuscular Hemoglobin Concent 34.4, Mean Platelet Volume 8.6, Neutrophils (%) (Auto) 88.5, Lymphocytes (%) (Auto) 6.8, Monocytes (%) (Auto) 3.8, Eosinophils (%) (Auto) 0.1, Basophils (%) (Auto) 0.1, Neutrophils # (Auto) 7.30, Lymphocytes # (Auto) 0.56, Monocytes # (Auto) 0.31, Eosinophils # (Auto) 0.01, Basophils # (Auto) 0.01 09/20/17 10:35 Test 09/20/17 10:25 09/20/17 10:35 Urine Color YELLOW Urine Appearance CLEAR (CLEAR) Urine pH 5.5 (4.5-7.5) Urine Specific [place] 1.021 (1.000-1.030) Urine Protein NEG (NEG) Urine Glucose (UA) NEG (NEG) Urine Ketones 2+ (NEG) Urine Occult Blood TRACE (NEG) Urine Nitrite NEG (NEG) Urine Bilirubin NEG (NEG) Urine Urobilinogen NEG (NEG) Urine Leukocyte Esterase NEG (NEG) Urine WBC (Auto) 1-5 /hpf (0-5) Urine RBC (Auto) 0-4 /hpf (0-4) Urine Hyaline Casts (Auto) 1-5 /lpf (0-5) Urine Epithelial Cells (Auto) 5-10 /lpf (0-5) Urine Bacteria (Auto) NEG (NEG) Influenza Type A Antigen Neg for Influ A (NEG) Influenza Type B Antigen Neg for Influ B (NEG) White Blood Count 8.25 K/uL (4.8-10.8) Red Blood Count 4.16 M/uL (4.2-5.4) Hemoglobin 12.7 g/dL (12.0-16.0) Hematocrit 36.9 % (37-47) Mean Corpuscular Volume 88.7 fL (80-100) Mean Corpuscular Hemoglobin 30.5 pg (25-34) Mean Corpuscular Hemoglobin Concent 34.4 g/dl (32-36) Platelet Count 248 K/uL (130-400) Mean Platelet Volume 8.6 fL (7.4-10.4) Neutrophils (%) (Auto) 88.5 % Lymphocytes (%) (Auto) 6.8 % Monocytes (%) (Auto) 3.8 % Eosinophils (%) (Auto) 0.1 % Basophils (%) (Auto) 0.1 % Neutrophils # (Auto) 7.30 K/uL (1.4-6.5) Lymphocytes # (Auto) 0.56 K/uL (1.2-3.4) Monocytes # (Auto) 0.31 K/uL (0.11-0.59) Eosinophils # (Auto) 0.01 K/uL (0-0.5) Basophils # (Auto) 0.01 K/uL (0-0.2) RDW Standard Deviation 39.2 fL (36.4-46.3) RDW Coefficient of Variation 12.2 % (11.5-14.5) Immature Granulocyte % (Auto) 0.7 % Immature Granulocyte # (Auto) 0.06 K/uL (0.00-0.02) Erythrocyte Sedimentation Rate 25 mm/hr (0-21) Prothrombin Time 11.2 SECONDS (9.0-12.0) Prothromb Time International Ratio 1.1 (0.9-1.1) Activated Partial Thromboplast Time 28.0 SECONDS (21.0-31.0) Partial Thromboplastin Ratio 1.1 Anion Gap 7.0 mmol/L (3-11) Est Creatinine Clear Calc Drug Dose 124.2 ml/min Estimated GFR () 135.9 Estimated GFR (Non- 117.2 BUN/Creatinine Ratio 7.8 (10-20) Calcium Level 9.0 mg/dl (8.5-10.1) Total Bilirubin 1.0 mg/dl (0.2-1) Direct Bilirubin 0.2 mg/dl (0-0.2) Aspartate Amino Transf (AST/SGOT) 13 U/L (15-37) Alanine Aminotransferase (ALT/SGPT) 16 U/L (12-78) Alkaline Phosphatase 77 U/L (45-117) Troponin I < 0.015 ng/ml (0-0.045) C-Reactive Protein 1.35 mg/dl (0-0.29) Total Protein 8.3 gm/dl (6.4-8.2) Albumin 4.1 gm/dl (3.4-5.0) Lipase 137 U/L (73-393) Human Chorionic Gonadotropin, Qual NEG (NEG) Laboratory results per my review. Medications Administered Medications (Trade) Dose Ordered Sig/Joe Route Start Time Stop Time Status Last Admin Dose Admin Acetaminophen (Tylenol Tab) 1,000 mg NOW STAT PO 09/20/17 10:13 09/20/17 10:15 DC 09/20/17 10:48 1,000 MG Sodium Chloride 1,000 ml @ 999 mls/hr Q1H1M STAT IV 09/20/17 10:13 09/20/17 11:13 DC 09/20/17 10:49 999 MLS/HR ECG Per My Interpretation Indication: SOB/dyspnea Rate (beats per minute): 107 Rhythm: sinus tachycardia Findings: other (ectopic beats noted, no acute ST segment) Comparison ECG Date: Change: ectopic beats are new ED Course 1008: The patient was evaluated in room A11B. A complete history and physical examination were performed. 1013: Ordered NSS 1,000 ml @ 999 mls/hr IV, Acetaminophen 1000 mg PO. 1144: I updated the patient on her test results. 1208: Upon reevaluation, the patient is resting comfortably. I discussed the results and treatment plan with her. She verbalized agreement of the treatment plan. The patient was discharged home. Medical Decision Differential diagnosis: Etiologies such as viral syndrome, otitis, pharyngitis, pneumonia, influenza, meningitis, urinary tract infection, sepsis, bacteremia, as well as others were entertained. Nursing notes reviewed. Patient's previous electronic medical records were also reviewed. The patient is a 22-year-old female who presented to the emergency department for an evaluation of what she described as an allergic reaction. The patient started having facial swelling. This occurred last evening. She showed me pictures of what her face looked like last evening. She did take Benadryl. This appears to have improved her symptoms because her facial swelling today appears improved. The patient also has a history of G6PD deficiency. She was concerned that this could be causing some of her symptoms today because she also describes vaginal bleeding. The patient had a fever. Her overall history and physical exam appear to be more consistent with a febrile illness. She had a cough. I discussed the patient's laboratory and radiographic studies with her. She was given Tylenol and IV fluids in the emergency department. I discussed her case with the emergency department pharmacist. I wish to start the patient on antibiotics and bronchodilators for presumed bronchitis given her underlying G6PD I asked his opinion on what medications she can safely be started on. The patient was given discharge instructions and encouraged to call [facility] to schedule a follow-up appointment. Otherwise she was encouraged to continue using Tylenol for fever and body aches and return to the emergency department immediately if symptoms change worsen or the need arises. Medication Reconcilliation Current Medication List: was personally reviewed by me Blood Pressure Screening Patient's blood pressure: Normal blood pressure Impression Primary Impression: Bronchitis Additional Impression: Fever Scribe Attestation The scribe's documentation has been prepared under my direction and personally reviewed by me in its entirety. I confirm that the note above accurately reflects all work, treatment, procedures, and medical decision making performed by me. Departure Information Dispostion Home / Self-Care Prescriptions Albuterol Hfa (VENTOLIN HFA) 200 Puffs/62132 Mcg Aers 1 PUFF INH Q4, #1 INHALER Prov: Nicola Lackey, DO 09/20/17 Cefdinir (OMNICEF) 300 Mg Cap 300 MG PO Q12H, #14 CAP Prov: Nicola Lackey, DO 09/20/17 Referrals No Doctor, Assigned (PCP) Forms HOME CARE DOCUMENTATION FORM, IMPORTANT VISIT INFORMATION Patient Instructions Bronchitis Acute, ED Fever Control, My [facility] Additional Instructions Call [facility] to schedule a follow-up appointment. Rest and avoid any strenuous activity. Drink plenty of clear liquids. Continue using Tylenol for fever. Return to the emergency department immediately if symptoms change worsening of the need arises. Problem Qualifiers Additional Impression: Fever Fever type: unspecified Qualified Codes: R50.9 - Fever, unspecified
[2017-09-20 10:59] LABS: BASO % 0.1 %; BASO ABS # 0.01 K/uL (0-0.2); EOS % 0.1 %; EOS ABS # 0.01 K/uL (0-0.5); HEMATOCRIT 36.9 % (37-47); HEMOGLOBIN 12.7 g/dL (12.0-16.0); IG# 0.06 K/uL (0.00-0.02); LYMPH % 6.8 %; LYMPH ABS # 0.56 K/uL (1.2-3.4); MEAN CELL VOLUME 88.7 fL (80-100); MEAN CORPUSCULAR HEMOGLOBIN 30.5 pg (25-34); MEAN CORPUSCULAR HGB CONC 34.4 g/dl (32-36); MEAN PLATELET VOLUME 8.6 fL (7.4-10.4); MONO % 3.8 %; MONO ABS # 0.31 K/uL (0.11-0.59); NEUT % 88.5 %; PLATELET COUNT 248 K/uL (130-400); RED CELL DISTRIBUTION WIDTH CV 12.2 % (11.5-14.5); RED CELL DISTRIBUTION WIDTH SD 39.2 fL (36.4-46.3); WHITE BLOOD COUNT 8.25 K/uL (4.8-10.8)
[2017-09-20 11:04] LABS: INFLUENZA B ANTIGEN Neg for Influ B (NEG)
[2017-09-20 11:06] LABS: INR 1.1 (0.9-1.1)
[2017-09-20 11:17] LABS: ALBUMIN 4.1 gm/dl (3.4-5.0); ALT/SGPT 16 U/L (12-78); BLOOD UREA NITROGEN 6 mg/dl (7-18); CARBON DIOXIDE 25 mmol/L (21-32); CREATININE 0.72 mg/dl (0.60-1.20); GLUCOSE 99 mg/dl (70-99); LIPASE 137 U/L (73-393); POTASSIUM 3.2 mmol/L (3.5-5.1); SODIUM 136 mmol/L (136-145)
--- NOTE | 2017-09-20 11:24 | DIAGNOSTIC IMAGING REPORT ---
CHEST 2 VIEWS ROUTINE HISTORY: 22 years-old Female ABDOMINAL PAIN/GI acute generalized abdominal pain COMPARISON: None available TECHNIQUE: PA and lateral views of the chest FINDINGS: Cardiomediastinal and hilar silhouettes are within normal limits. Linear subsegmental atelectasis of the lingula without pneumothorax, pleural effusion, focal airspace consolidation or overt pulmonary edema. Bones of the chest appear grossly intact. IMPRESSION: Linear subsegmental atelectasis of the lingula without acute process. The above report was generated using voice recognition software. It may contain grammatical, syntax or spelling errors. Electronically signed by: Gorge Evans M.D. 09/20/2017 11:23 AM Dictated Date/Time: 09/20/2017 11:22 AM
[2017-09-20 11:26] LABS: ALKALINE PHOSPHATASE 77 U/L (45-117); AST/SGOT 13 U/L (15-37); TOTAL PROTEIN 8.3 gm/dl (6.4-8.2)
[2017-09-20] MEDS ORDERED: VNTHFA/IN INH (12:00)
[2017-09-20] MEDS ORDERED: CEFD300C2 PO (12:00)
[2017-09-20 12:23] VITALS: BP 119/59; PULSE 109; O2SAT 98
== END 2017-09-20 12:30 | disposition home or self-care (01) ==
LOC: C.EDB 09:28 → C.EDA 12:30
DX: J40 Bronchitis, not specified as acute or chronic (principal); R50.9 Fever, unspecified; J45.909 Unspecified asthma, uncomplicated; D55.0 Anemia due to glucose-6-phosphate dehydrogenase [G6PD] deficiency; Z91.048 Other nonmedicinal substance allergy status; Z88.2 Allergy status to sulfonamides

== ENCOUNTER 2017-09-22 12:45 | Emergency (ER) | payer OTHER, BC ==
[~2017-09-22] VITALS: Ht 165.1 cm; Wt 76.0 kg
[~2017-09-22 12:45] MED LIST changes: +CEFD300C2 PO; +VNTHFA/IN INH
[2017-09-22 12:52] VITALS: TEMP 36.9; Ht 165.1 cm; Wt 76.0 kg
[2017-09-22] MEDS ORDERED: RANITIDINE HCL 50 MG/100 ML D5W IV STA (13:23)
[2017-09-22] MEDS ORDERED: METHYLPREDNISOLONE 125 MG VIAL IV STA (13:23)
[2017-09-22] MEDS ORDERED: DiphenhydrAMINE HCL 50 MG/ML VIAL IV STA (13:23)
[2017-09-22 13:41] VITALS: O2SAT 98
[2017-09-22] MEDS ORDERED: EPP3/2 IM (14:36)
[2017-09-22] MEDS ORDERED: METH4PAK PO (14:36)
--- NOTE | 2017-09-22 14:38 | EMERGENCY ROOM VISIT NOTE ---
ED Visit Note First contact with patient: 12:59 CHIEF COMPLAINT: Allergic reaction HISTORY OF PRESENT ILLNESS: This 22-year-old female patient presents to the emergency department 3 days after they developed sudden onset of swelling of her lips, tongue, and throat and itching of the arms. The patient states she used a lotion which she was allergic to. She does have a history of frequent allergic reactions in the past. She does report a history of G6PD. The patient does have swelling of the face and lips and a sensation of swelling in the throat. The patient has not had shortness of breath. Has had previous reactions and like this before. The patient has tried 25 mg Benadryl twice daily without improvement in her symptoms. She was seen here in the emergency department 2 days ago and diagnosed with bronchitis and prescribed an inhaler and antibiotics. She states she has not picked up these medications, she is waiting for her mother. REVIEW OF SYSTEMS: A 10 system review of systems was performed with positives and pertinent negatives listed in the history of present illness. All other systems were reviewed and are negative. ALLERGIES: Latex, sulfates MEDICATIONS: Cefdinir, albuterol PMH: G6PD, asthma, JRA SOCIAL HISTORY: The patient lives locally. She denies tobacco use. She admits to occasional alcohol use. The patient does admit to regular marijuana use. PHYSICAL EXAM:VITALS: Vitals are noted on the nurse's note and reviewed by myself. Vital signs stable. GENERAL: This is a 22-year-old black female, in no acute distress, nondiaphoretic, well-developed well-nourished. THROAT: No pharyngeal edema or injection, no exudates or tonsillar hypertrophy. Airway patent. LUNGS: Clear to auscultation and breath sounds equal, no wheezes, rales, or rhonchi. EYES: PERRLA, EOMI, no discharge or injection. NEUROLOGICAL: Alert and oriented to person, place, and time. Normal sensation to light and sharp touch. HEART: Regular rate without murmurs, ectopy, gallops, or rubs. SKIN: There is a mild, erythematous, maculopapular rash on the upper extremities. The lips are mildly swollen. There is no periorbital swelling. EMERGENCY DEPARTMENT COURSE: I examined the patient. Previous medical records reviewed. I offered to perform repeat labs, but the patient declines. I had a discussion with the patient regarding improvement in her symptoms, and recommended discharge on PO steroids. The patient initially seemed agreeable to this, then became irritable, and states "you don't understand, my tongue is swollen and I can't eat, and I just want to be able to enjoy food." I discussed with her that steroids will help with the swelling and she can take regular Zantac and Benadryl orally in addition to taking the steroids, as she is not currently taking Zantac, and is taking Benadryl only 25mg BID. She states she would like to receive IV medications which she normally gets when she comes to the ED for allergic reactions. IV access was obtained. The patient was given 50mg diphenhydramine, 50mg Zantac, and 125mg methylprednisolone IV for her symptoms. Halsey much improved. Discharge instructions reviewed, and the patient was discharged home in good condition with a prescription for Medrol Dosepak and EpiPen, per the patient's request. Patient was seen and evaluated by Dr. Cifuentes, who is in agreement with the assessment and plan. I attest that I have personally reviewed the patient's current medication list. Patient was found to have normal blood pressure on screening and does not require follow-up. DIFFERENTIAL DIAGNOSIS: Allergic reaction, lymphedema, upper respiratory infection, acute sinusitis, acute pharyngitis, Ludewig's angina, anaphylaxis, odontalgia, periapical abscess, malignancy, and others DIAGNOSIS: Allergic reaction Problem List Medical Problems: (1) Asthma Status: Chronic (2) G6PD deficiency Status: Chronic Current/Historical Medications Scheduled Albuterol Hfa (Ventolin Hfa), 1 PUFF INH Q4 Cefdinir (Omnicef), 300 MG PO Q12H Epinephrine (Epipen), 0.3 MG IM UD Methylprednisolone (Medrol Dosepak), 0 PO DAILY Scheduled PRN Epinephrine (Epipen 2-Cholo), 0.3 MG IM DIRECTED PRN for ALLERGIC REACTION Allergies Coded Allergies: Latex (Verified Allergy, Mild, RASH, 06/03/17) Uncoded Allergies: SULFATES (Allergy, Severe, ANAPHYLAXIS, 10/25/16) Vital Signs Date Time Temp Pulse Resp B/P (MAP) Pulse Ox O2 Delivery O2 Flow Rate FiO2 09/22/17 14:49 90 16 108/68 100 09/22/17 13:41 98 Room Air 09/22/17 12:52 36.9 107 16 139/89 100 Room Air Medications Administered Medications (Trade) Dose Ordered Sig/Joe Route Start Time Stop Time Status Last Admin Dose Admin Diphenhydramine HCl (Benadryl Inj) 50 mg NOW STAT IV 09/22/17 13:23 09/22/17 13:27 DC 09/22/17 13:40 50 MG Ranitidine HCl (zANTac IV) 50 mg NOW STAT IV 09/22/17 13:23 09/22/17 13:27 DC 09/22/17 13:40 50 MG Methylprednisolone Sodium Succinate (Solu-Medrol IV) 125 mg NOW STAT IV 09/22/17 13:23 09/22/17 13:27 DC 09/22/17 13:40 125 MG Departure Information Impression Primary Impression: Allergic reaction Dispostion Home / Self-Care Condition GOOD Prescriptions Epinephrine (EPIPEN) 0.3 Mg/0.3 Ml Inj 0.3 MG IM UD for Allergic Reaction, #1 BOX Prov: Carisa Wallace PA-C 09/22/17 Methylprednisolone (MEDROL DOSEPAK) 4 Mg Cholo 0 PO DAILY, #1 PKT Prov: Carisa Wallace PA-C 09/22/17 Referrals Burke Dunham MD (PCP) Patient Instructions ED Allergic Reaction General Other, My [facility] Additional Instructions You have been treated in the Emergency Department for an Allergic Reaction. You have been treated and monitored in the Emergency Department appropriately. You should take Benadryl (diphenhydramine) 25-50 mg orally every 4-6 hours for the next 5-7 days. This medication is [id number] and you will NOT need a prescription to purchase this at your local pharmacy. You should continue taking the Benadryl for the COMPLETION of the 5-7 days. This is to prevent a rebound allergic reaction in the event that allergens are still present in your system. You should take Zantac (ranitidine) 75 mg orally once daily for the next 7 days. This medication is [id number] and you will NOT need a prescription to purchase this at your local pharmacy. You should continue taking the Zantac for the COMPLETION of the 7 days. This is to prevent a rebound allergic reaction in the event that allergens are still present in your system. You have been prescribed a Medrol Dosepak. Take this medication as prescribed. You should take the COMPLETE 6-day course of this medication. This is an anti- inflammatory medicine that will help to minimize your symptoms. You have been prescribed an EpiPen to be used in the case of an Emergency. Please read the packet you have been given and ask your pharmacist for instructions on proper administration. If you begin to experience the symptoms that brought you to the Emergency Department today, you should give yourself the injection and then report IMMEDIATELY to the Emergency Department for further evaluation and treatment. As with every Emergency Department visit, you should follow-up with your primary care provider in 2-3 days for reevaluation. Return to the Emergency Department if your current symptoms worsen despite treatment course outlined above, or if you develop any of the following symptoms : wheezing, tongue or face swelling, tightness in your throat, shortness of breath, or fainting. Problem Qualifiers Primary Impression: Allergic reaction Encounter type: initial encounter Qualified Codes: T78.40XA - Allergy, unspecified, initial encounter
--- NOTE | 2017-09-22 14:44 | EMERGENCY ROOM VISIT NOTE ---
ED Visit Note First contact with patient: 12:59 Patient was seen by our PA/PAPER GOODS MACHINE OPERATOR. I was involved in the patient's care and did evaluate the patient myself. I was involved in the care throughout the ER stay. The patient presents with the return of what felt like some of her allergic reaction symptoms. She was medicated here and feels improved. She will be discharged with an EpiPen as well as a course of steroids. Currently, her lungs are clear, there is no uvular edema. She is not toxic in appearance.
[2017-09-22 14:49] VITALS: BP 108/68; PULSE 90; O2SAT 100
== END 2017-09-22 14:51 | disposition home or self-care (01) ==
LOC: C.EDB 12:46 → C.EDD 14:51
DX: T78.40XA Allergy, unspecified, initial encounter (principal); X58.XXXA Exposure to other specified factors, initial encounter; R21 Rash and other nonspecific skin eruption; R22.0 Localized swelling, mass and lump, head; R22.1 Localized swelling, mass and lump, neck; J45.909 Unspecified asthma, uncomplicated; D55.0 Anemia due to glucose-6-phosphate dehydrogenase [G6PD] deficiency